=== PATIENT | female | born 1955 | race Caucasian/White ===

== ENCOUNTER 2016-09-22 18:00 | Inpatient (IN) | payer OTHER ==
[~2016-09-22] VITALS: Ht 167.6 cm; Wt 51.5 kg
[~2016-09-22 18:00] MED LIST: ACTONEL150 MG PO; ALPRAZOLAM0.25 MG PO; AMOXICILLIN250 MG PO; ARAVA10 MG PO; ATROVENT; CALCIUM + VITA1 EACH PO; CALCIUM 500-VI1 EACH PO; CENTRUM SILVER1 EAC3 PO; COUMADIN,JANTOVE4 MG PO; Calcium Carbonate,Ca PO; FOLIC ACID1 MG PO; FOSAMAX5 MG PO; FOSAMAX70 MG PO; HYDROXYCHLOROQ200 MG PO; LASIX20 MG PO; LEFLUNOMIDE10 MG PO; LIPITOR10 MG PO; LIPITOR20 MG; LIPITOR20 MG PO; METHOTREXATE2.5 M2 PO; METHOTREXATE2.5 MG PO; MIRALAX17 GM PO; MUCINEX D ER T1 EACH PO; PERCOCET 7.51 TABLET PO; PLAQUENIL200 MG PO; PREDNISONE10 M2 PO; PREDNISONE10 MG PO; PREDNISONE2.5 MG PO; PROTONIX40 MG PO; SALSALATE500 MG PO; THERAGRAN1 TABLET PO; TRAMADOL HCL50 MG PO; VITAMIN A8000 UNIT PO; WARFARIN SODIUM4 MG PO; WARFARIN SODIUM5 MG PO; XANAX0.25 MG PO; [UNRECOGNIZED DRUG - OTHER] PO
[2016-09-22 21:11] LABS: EOSINOPHIL (%) 0 % (0-5); HEMATOCRIT 32.7 % (36.0-46.0); IMMATURE GRANULOCYTE (%) 0.3 % (0.0-0.7); INSTRUMENT ABS NEUTROPHIL CT 5.7 K/uL; LYMPHOCYTE COUNT 0.8 K/uL (1.0-2.8); MCH 31.7 PG (29.0-34.0); MCHC 34.3 G/DL (30.0-36.0); MCV 92.6 FL (83-99); MEAN PLAT.VOLUME 9.4 uM^3 (9.5-12.4); MONOCYTE (%) 1.5 % (3-12); MONOCYTE COUNT 0.1 K/uL (0-0.8); NEUTROPHIL (%) 86.3 % (45-76); NEUTROPHIL COUNT 5.7 K/uL (1.8-6.4); PLATELET COUNT 223 K/uL (156-360); RBC DIS.WIDTH-CV 17.6 % (11.8-14.6); RED BLOOD COUNT 3.53 M/uL (3.80-5.20); WHITE BLOOD COUNT 6.6 K/uL (4.1-10.2)
[2016-09-22 21:18] LABS: CHLORIDE 87 mEq/L (99-109); POTASSIUM 2.7 mEq/L (3.7-5.4); SODIUM 132 mEq/L (136-147)
[2016-09-22 21:20] LABS: GLUCOSE 67 mg/dL (70-99)
[2016-09-22 21:21] LABS: ANION GAP 15 MEQ/L (2-14)
[2016-09-22 21:22] LABS: TOTAL BILIRUBIN 0.5 mg/dL (0.0-1.0)
[2016-09-22 21:23] LABS: ALKALINE PHOSPHATASE 117 IU/L (3-129)
[2016-09-22 21:24] LABS: GFR ESTIMATE (CALCULATED) > 59 mL/min/
[2016-09-22 21:25] LABS: UREA NITROGEN (BUN) 19 mg/dL (9-23)
[2016-09-22 21:48] LABS: PROTHROMBIN TIME 58.6 SEC (10.2-12.9); PTT 43.4 SEC (25-37)
[2016-09-22 23:59] LABS: CREATINE KINASE 84 IU/L (1-294)
[2016-09-23] MEDS ORDERED: PREDNISONE1 MG PO (01:29)
[2016-09-23] MEDS ORDERED: IPRATROPIUM BRO30 ML BOTH NARES (01:32)
[2016-09-23 02:22] VITALS: BP 123/56
[2016-09-23 07:37] LABS: MCH 32.8 PG (29.0-34.0); MCHC 34.5 G/DL (30.0-36.0); MCV 95.1 FL (83-99); PLATELET COUNT 171 K/uL (156-360); RED BLOOD COUNT 3.05 M/uL (3.80-5.20); WHITE BLOOD COUNT 4.7 K/uL (4.1-10.2)
[2016-09-23 07:42] LABS: INTER. NORMALIZED RATIO 3.5; PROTHROMBIN TIME 40.6 SEC (10.2-12.9)
[2016-09-23 08:02] VITALS: BP 76/59
[2016-09-23 08:07] LABS: ANION GAP 8 MEQ/L (2-14); CHLORIDE 96 MEQ/L (99-109); GFR ESTIMATE (CALCULATED) > 59 mL/min/; GLUCOSE 48 mg/dL (70-99); SAMPLE HEMOLYSIS CHECK 0; SAMPLE ICTERIC CHECK 0; SAMPLE LIPEMIA CHECK 0; SODIUM 132 MEQ/L (136-147); UREA NITROGEN (BUN) 14 mg/dL (9-23)
[2016-09-23 08:12] LABS: POTASSIUM 3.9 MEQ/L (3.7-5.4)
[2016-09-23 08:45] VITALS: BP 105/62
[2016-09-23 12:02] VITALS: BP 91/51
[2016-09-23 15:54] VITALS: BP 89/56
[2016-09-23 19:30] VITALS: BP 86/51
[2016-09-24] VITALS (8 sets, daily range): BP systolic 89–127; BP diastolic 50–84
[2016-09-24 06:29] LABS: HEMATOCRIT 27.1 % (36.0-46.0); MCH 32.2 PG (29.0-34.0); MCHC 33.6 G/DL (30.0-36.0); MCV 95.8 FL (83-99); MEAN PLAT.VOLUME 8.8 uM^3 (9.5-12.4); PLATELET COUNT 157 K/uL (156-360); RBC DIS.WIDTH-CV 18.3 % (11.8-14.6); RBC DIS.WIDTH-SD 64.3 % (39-53); RED BLOOD COUNT 2.83 M/uL (3.80-5.20); WHITE BLOOD COUNT 5.6 K/uL (4.1-10.2)
[2016-09-24 06:41] LABS: INTER. NORMALIZED RATIO 3.3; PROTHROMBIN TIME 38.4 SEC (10.2-12.9)
[2016-09-24 07:05] LABS: ANION GAP 10 MEQ/L (2-14); CHLORIDE 102 MEQ/L (99-109); GFR ESTIMATE (CALCULATED) > 59 mL/min/; GLUCOSE 68 mg/dL (70-99); MAGNESIUM 1.9 mg/dl (1.3-2.7); SAMPLE HEMOLYSIS CHECK 0; SAMPLE ICTERIC CHECK 0; SAMPLE LIPEMIA CHECK 0; SODIUM 135 MEQ/L (136-147); UREA NITROGEN (BUN) 14 mg/dL (9-23)
[2016-09-25 03:32] VITALS: BP 123/67
[2016-09-25 08:28] VITALS: BP 128/91
[2016-09-25] MEDS ORDERED: PREDNISONE10 MG PO ×2 (09:12→09:13)
[2016-09-25 09:33] LABS: HEMATOCRIT 29.5 % (36.0-46.0); MCHC 34.6 G/DL (30.0-36.0); MCV 95.5 FL (83-99); MEAN PLAT.VOLUME 9.3 uM^3 (9.5-12.4); PLATELET COUNT 140 K/uL (156-360); RBC DIS.WIDTH-CV 17.6 % (11.8-14.6); RBC DIS.WIDTH-SD 61.1 % (39-53); RED BLOOD COUNT 3.09 M/uL (3.80-5.20)
[2016-09-25 10:00] LABS: ANION GAP 9 MEQ/L (2-14); CHLORIDE 108 MEQ/L (99-109); GFR ESTIMATE (CALCULATED) > 59 mL/min/; POTASSIUM 3.9 MEQ/L (3.7-5.4); SAMPLE HEMOLYSIS CHECK 0; SAMPLE ICTERIC CHECK 0; SAMPLE LIPEMIA CHECK 0; SODIUM 138 MEQ/L (136-147); UREA NITROGEN (BUN) 11 mg/dL (9-23)
[2016-09-25 10:03] LABS: GLUCOSE 116 mg/dL (70-99)
[2016-09-25 10:04] LABS: INTER. NORMALIZED RATIO 3.2
[2016-09-25 12:10] VITALS: BP 132/88
== END 2016-09-25 13:28 | disposition home or self-care (01) | DRG 872 ==
LOC: EME 18:00 → EDOF 09-23 00:14 → 5SOUTH 09-23 00:14 → ENRESERV 09-23 00:19 → 5SOUTH 09-23 01:40
PROVIDERS: Hospitalist; Internal Medicine; Physician Assistant
DX: A41.9 Sepsis, unspecified organism (principal); L03.116 Cellulitis of left lower limb; E87.2 Acidosis; D68.9 Coagulation defect, unspecified; L97.919 Non-pressure chronic ulcer of unspecified part of right lower leg with unspecified severity; I83.009 Varicose veins of unspecified lower extremity with ulcer of unspecified site; M06.9 Rheumatoid arthritis, unspecified; E87.1 Hypo-osmolality and hyponatremia; E83.51 Hypocalcemia; E87.6 Hypokalemia; E78.5 Hyperlipidemia, unspecified; E16.2 Hypoglycemia, unspecified; M79.3 Panniculitis, unspecified; I87.8 Other specified disorders of veins; E83.39 Other disorders of phosphorus metabolism; Z96.651 Presence of right artificial knee joint; Z68.1 Body mass index [BMI] 19.9 or less, adult; Z86.718 Personal history of other venous thrombosis and embolism; Z86.711 Personal history of pulmonary embolism; Z79.899 Other long term (current) drug therapy; Z79.01 Long term (current) use of anticoagulants; Z79.83 Long term (current) use of bisphosphonates; Z88.0 Allergy status to penicillin; Z82.49 Family history of ischemic heart disease and other diseases of the circulatory system; Z87.11 Personal history of peptic ulcer disease; E11.621 Type 2 diabetes mellitus with foot ulcer; L97.519 Non-pressure chronic ulcer of other part of right foot with unspecified severity; I77.6 Arteritis, unspecified
CPT/HCPCS: 73590; 80048; 80053; 80202; 82550; 83605; 83735; 84100; 84630 90; 85025; 85027; 85610; 85730; 86140; 87040; 93005; 99281; 99285; J0692; J2920; J3010; J3370; J3480; J7030; J7040; J7050; J7512

== ENCOUNTER 2017-08-02 14:05 | Emergency (ER) | payer OTHER ==
[~2017-08-02] VITALS: Ht 167.6 cm; Wt 51.1 kg
[~2017-08-02 14:05] MED LIST changes: +IPRATROPIUM BRO30 ML BOTH NARES; +PREDNISONE1 MG PO; +PREDNISONE20 MG PO
[2017-08-02 15:37] LABS: INTER. NORMALIZED RATIO 3.5
[2017-08-02 15:38] LABS: ALBUMIN 3.3 g/dL (3.2-4.8); CHLORIDE 99 mEq/L (99-109); POTASSIUM 4.5 mEq/L (3.7-5.4); PTT 38.4 SEC (25-37); SODIUM 138 mEq/L (136-147)
[2017-08-02 15:40] LABS: BASOPHIL (%) 0.2 % (0-1); EOSINOPHIL (%) 0 % (0-5); HEMATOCRIT 37.5 % (36.0-46.0); HEMOGLOBIN 12.6 G/DL (11.9-15.5); IMMATURE GRANULOCYTE (%) 0.5 % (0.0-0.7); LYMPHOCYTE (%) 3.5 % (15-42); LYMPHOCYTE COUNT 0.3 K/uL (1.0-2.8); MCHC 33.6 G/DL (30.0-36.0); MCV 98.2 FL (83-99); MONOCYTE COUNT 0.5 K/uL (0-0.8); NEUTROPHIL (%) 90.8 % (45-76); NEUTROPHIL COUNT 8.9 K/uL (1.8-6.4); NRBC (%) 0.2 /100 WBC (0-0); PLATELET COUNT 271 K/uL (156-360); RBC DIS.WIDTH-CV 18.5 % (11.8-14.6); RBC DIS.WIDTH-SD 65.7 % (39-53); RED BLOOD COUNT 3.82 M/uL (3.80-5.20); WHITE BLOOD COUNT 9.8 K/uL (4.1-10.2)
[2017-08-02 15:41] LABS: GLUCOSE 95 mg/dL (70-99); TOTAL PROTEIN 5.9 g/dL (6.4-8.3)
[2017-08-02 15:43] LABS: TOTAL BILIRUBIN 0.4 mg/dL (0.0-1.0)
[2017-08-02 15:44] LABS: ALKALINE PHOSPHATASE 69 IU/L (3-129); CREATININE 0.7 mg/dL (0.6-1.3); GFR ESTIMATE (CALCULATED) > 59 mL/min/
[2017-08-02 15:45] LABS: UREA NITROGEN (BUN) 27 mg/dL (9-23)
[2017-08-02 15:46] LABS: AST (GOT) 40 IU/L (2-34)
[2017-08-02 15:47] LABS: ALT (GPT) 24 IU/L (3-49)
[2017-08-02] MEDS ORDERED: LORTAB 5-325 M1 EACH PO (17:02)
[2017-08-02 17:38] VITALS: BP 124/79
== END 2017-08-02 17:48 | disposition home or self-care (01) ==
LOC: EME 14:05
PROVIDERS: Emergency Medicine
DX: S81.801A Unspecified open wound, right lower leg, initial encounter (principal); M79.604 Pain in right leg; K21.9 Gastro-esophageal reflux disease without esophagitis; E78.5 Hyperlipidemia, unspecified; M06.9 Rheumatoid arthritis, unspecified; F41.9 Anxiety disorder, unspecified; Z79.01 Long term (current) use of anticoagulants; Z88.5 Allergy status to narcotic agent; Z88.0 Allergy status to penicillin; Z88.1 Allergy status to other antibiotic agents
CPT/HCPCS: 73590; 80053; 83605; 85025; 85610; 85730; 87040; 87075; 87077; 87205; 99281; 99284